=== PATIENT | female | born 1990 | race Caucasian/White ===

== ENCOUNTER 2018-05-16 12:00 | Emergency (ER) | payer BC ==
[~2018-05-16] VITALS: Ht 160 cm; Wt 63.5 kg
--- NOTE | 2018-05-16 12:26 | NUR ---
Patient discharged to home in stable conditon. Written and verbal after care instructions given. Patient verbalizes understanding of instructions.
[2018-05-16 12:33] LABS: *BILIRUBIN,URIN NEGATIVE (NEGATIVE); *BLOOD, URINE 2+ (NEGATIVE); *CLARITY,URINE CLOUDY (CLEAR); *COLOR,URINE YELLOW (YELLOW); *KETONES,URINE NEGATIVE (NEGATIVE); *UROBILINOGEN,URINE 0.2 E.U./dl (NORMAL); LEUKOCYTE ESTERASE ,URINE TRACE (NEGATIVE); NITRITE, URINE NEGATIVE (NEGATIVE); PH,URINE 7.5 (5.0-8.0); UGLUCOSE NEGATIVE (NEGATIVE)
[2018-05-16 12:34] LABS: *URINE HCG, QUAL NEGATIVE (NEGATIVE)
[2018-05-16 12:38] LABS: BACTERIA,URINE FEW /HPF (NONE SEEN); SQUAMOUS EPITHELIAL CELL,UR FEW /HPF (NONE SEEN)
== END 2018-05-16 12:28 | disposition home or self-care (01) ==
LOC: ER 12:00
DX: J06.9 Acute upper respiratory infection, unspecified (principal)
CPT/HCPCS: 84703; A4663